=== PATIENT | female | born 1960 ===

== ENCOUNTER 2021-04-09 05:55 | Inpatient (IN) ==
[~2021-04-09 05:55] MED LIST: Naloxone 0.4 mg VIAL 0.4 mg/ml 1 ml VIAL IV PRN; Ondansetron 4 mg VIAL 2 MG/ML 2 ml VIAL IV PRN; fentaNYL 100 mcg/2 ml 50 MCG/ML VIAL IV PRN
[2021-04-09] MEDS ORDERED: Buffered Lidocaine 1% SYRIN 1 ml INTRADERM ONE ×2 (06:00→06:25)
[2021-04-09] MEDS ORDERED: Lactated Ringers 1000 ml BAG 1,000 ML IV SCH (06:00)
[2021-04-09] MEDS ORDERED: Heparin 5000 UNITS/ML 1 mL VIAL ONE (06:25)
[2021-04-09] MEDS ORDERED: Ertapenem 1 GM in NS 0.9% 50 ML IVPB ONE (07:00)
[2021-04-09 07:07] LABS: Calcium 9.3 mg/dL (8.6-10.3); Potassium 2.8 mmol/L (3.5-5.0); eGFR CKD-EPI 62.2 (>60)
[2021-04-09] MEDS ORDERED: Propofol 10 MG/ML 20 ML BTL ONE (07:11)
[2021-04-09] MEDS ORDERED: Rocuronium 50 mg VIAL 10 mg/ml 5 ml VIAL (50 mg) ONE ×2 (07:11→10:55)
[2021-04-09] MEDS ORDERED: fentaNYL 250 mcg/5 ml 50 MCG/ML 5 ml VIAL (250 MCG) ONE (07:11)
[2021-04-09] MEDS ORDERED: Dexamethasone IV 4 MG/ML VIAL 1 ml VIAL ONE (07:11)
[2021-04-09] MEDS ORDERED: Ondansetron 4 mg VIAL 2 MG/ML 2 ml VIAL ONE (07:11)
[2021-04-09] MEDS ORDERED: Lidocaine 2% PF 5 ML VIAL ONE (07:11)
[2021-04-09] MEDS ORDERED: Midazolam 2 mg/2 ml VIAL 1 mg/ml 2 ml VIAL (2 mg) ONE (07:11)
[2021-04-09] MEDS ORDERED: Iohexol 180 (CONTRAST) 10 ML SDV IV ONE (07:17)
[2021-04-09] MEDS ORDERED: Bupivacaine 0.5% SDV PF 30ML VIAL ONE (07:17)
[2021-04-09] MEDS ORDERED: EPHEDrine (Pressors) 50 MG/ML VIAL ONE (09:17)
[2021-04-09] MEDS ORDERED: Ondansetron 4 mg VIAL 2 MG/ML 2 ml VIAL IV PRN (13:07)
[2021-04-09] MEDS ORDERED: HYDROmorphone 0.5 MG/0.5 ML SYRINGE IV SLOW PU PRN (13:07)
[2021-04-09] MEDS ORDERED: Acetaminophen IV 1 GM/100ML 100 ML IV ONE (13:48)
[2021-04-09] MEDS: Acetaminophen IV 1 GM/100ML 100 ML IV SCH ×2 (13:50→20:17)
[2021-04-09] MEDS ORDERED: HYDROmorphone 1 MG/1 ML SYRINGE ONE (14:18)
[2021-04-09] MEDS: Potassium Chloride IV 40 MEQ in Lactated Ringers 1000 ml BAG 1,000 ML IVPB SCH ×2 (14:18→22:08)
[2021-04-09] MEDS: HYDROmorphone 1 MG/1 ML SYRINGE IV PRN ×5 (14:21→14:45)
[2021-04-09] MEDS: Heparin 5000 UNITS/ML 1 mL VIAL SUBCUT SCH (17:24)
[2021-04-10] MEDS: Heparin 5000 UNITS/ML 1 mL VIAL SUBCUT SCH ×4 (00:30→22:26)
[2021-04-10] MEDS: Acetaminophen IV 1 GM/100ML 100 ML IV SCH ×4 (01:20→19:43)
[2021-04-10] MEDS: Lactated Ringers 1000 ml BAG 1,000 ML IV SCH ×3 (02:53→19:03)
[2021-04-10] MEDS: Potassium Chloride IV 40 MEQ in Lactated Ringers 1000 ml BAG 1,000 ML IVPB SCH (03:42)
[2021-04-10 06:59] LABS: ABS Lymphocytes 1.9 10^3/ul (1.0-4.8); ABS Monocytes 0.7 10^3/ul (0-0.8); ABS Neutrophils 8.6 10^3/ul (1.5-7.7); Eosinophil % 0.1 %; Hematocrit 32 % (35-47); Lymphocyte % 17.1 %; Mean Corpuscular HGB Conc 34 g/dL (31-36); Mean Corpuscular Hemoglobin 34 pg (27-31); Mean Corpuscular Volume 99 fL (80-97); Mean Platelet Volume 6.4 fL (7.4-10.4); Platelet Count 212 10^3/uL (150-450); Red Blood Count 3.26 10^6 /uL (3.70-4.87); Red Cell Distribution Width 15 % (10-15); White Blood Count 11.2 10^3/uL (3.5-10.8)
[2021-04-10 07:17] LABS: Calcium 8.2 mg/dL (8.6-10.3); Potassium 3.5 mmol/L (3.5-5.0); eGFR CKD-EPI 40.4 (>60)
[2021-04-10] MEDS ORDERED: HYDROcodone/ACETAMIN 5/325 mg TAB PO PRN (09:23)
[2021-04-11] MEDS: Acetaminophen IV 1 GM/100ML 100 ML IV SCH ×2 (01:18→07:48)
[2021-04-11] MEDS: Lactated Ringers 1000 ml BAG 1,000 ML IV SCH (03:26)
[2021-04-11] MEDS: Heparin 5000 UNITS/ML 1 mL VIAL SUBCUT SCH ×3 (05:46→20:02)
[2021-04-11 06:26] LABS: Calcium 8.3 mg/dL (8.6-10.3); Potassium 3.5 mmol/L (3.5-5.0)
[2021-04-11] MEDS ORDERED: Flu vaccine *QUAD* 2021-22* 0.5 ML SYRINGE IM ONE (09:00)
[2021-04-11] MEDS: D5W 1/2 NS KCl 20 meq 1000 ml 1,000 ML IV SCH ×2 (10:33→18:32)
[2021-04-11 11:24] LABS: Urine Appearance Clear; Urine Bilirubin Negative (Negative); Urine Blood 3+ (Negative); Urine Color Yellow; Urine Glucose Negative (Negative); Urine Ketones Negative (Negative); Urine Nitrite Negative (Negative); Urine Protein Negative (Negative); Urine Specific Gravity 1.009 (1.002-1.030); Urine Urobilinogen Negative (Negative)
[2021-04-11 11:40] LABS: Urine Bacteria Absent (Absent); Urine Red Blood Cell 3+(>10/hpf) (Absent); Urine Squamous Epithelial Cell Present (Absent); Urine White Blood Cell 2+(11-20/hpf) (Absent)
[2021-04-12] MEDS: D5W 1/2 NS KCl 20 meq 1000 ml 1,000 ML IV SCH (01:42)
[2021-04-12 06:06] LABS: Calcium 8.4 mg/dL (8.6-10.3); Potassium 3.6 mmol/L (3.5-5.0); eGFR CKD-EPI 56.8 (>60)
[2021-04-12] MEDS: Heparin 5000 UNITS/ML 1 mL VIAL SUBCUT SCH (06:13)
[2021-04-12 11:09] VITALS: BP 139/69
== END 2021-04-12 12:00 | disposition home or self-care (01) | DRG 447 ==
LOC: AA 05:55 → SSU 15:14
PROVIDERS: ADMIT Surgery; ATTEND Surgery